=== PATIENT | female | born 1955 | race Caucasian/White ===

== ENCOUNTER → 2021-09-21 | Day surgery (SDC) | payer MEDICARE, BC ==
[~2021-09-21] MED LIST: Ketamine 200 MG/20 ML MDV ONE; Midazolam 1 MG/ML 2 ML SDV ONE; Propofol 200 MG/20 ML SDV ONE; fentaNYL 50 MCG/ML SDV ONE
[2021-09-21] MEDS: Lactated Ringers 1,000 ML IV SCH (08:39)
== END ==
LOC: CC.SDS 08:17
PROVIDERS: ATTEND Family Medicine
DX: D12.3 Benign neoplasm of transverse colon (principal); D12.4 Benign neoplasm of descending colon; D12.5 Benign neoplasm of sigmoid colon; K57.30 Diverticulosis of large intestine without perforation or abscess without bleeding; F41.9 Anxiety disorder, unspecified; E78.5 Hyperlipidemia, unspecified; G47.00 Insomnia, unspecified; G43.909 Migraine, unspecified, not intractable, without status migrainosus; M81.0 Age-related osteoporosis without current pathological fracture; Z88.1 Allergy status to other antibiotic agents; Z88.8 Allergy status to other drugs, medicaments and biological substances; Z88.6 Allergy status to analgesic agent; Z88.2 Allergy status to sulfonamides; Z88.0 Allergy status to penicillin; Z79.899 Other long term (current) drug therapy; Z87.891 Personal history of nicotine dependence
CPT/HCPCS: 00811; J2250; J2704; J3010; J7120

== ENCOUNTER 2022-07-21 12:27 | Emergency (ER) | payer MEDICARE, BC ==
[2022-07-21] MEDS ORDERED: methylPREDNISolone Sodium Succinate 125 MG/2 ML SDV IM STA (12:49)
== END 2022-07-21 13:30 | disposition home or self-care (01) ==
LOC: CC.ED 12:27
DX: R22.0 Localized swelling, mass and lump, head (principal); T78.3XXD Angioneurotic edema, subsequent encounter; Z88.1 Allergy status to other antibiotic agents; Z88.0 Allergy status to penicillin; Z88.6 Allergy status to analgesic agent; Z88.2 Allergy status to sulfonamides; Z79.899 Other long term (current) drug therapy
CPT/HCPCS: 96372; 99283; J2930

== ENCOUNTER 2024-12-17 07:19 | Day surgery (SDC) | payer MEDICARE, BC ==
[2024-12-17] MEDS: Lactated Ringers 1,000 ML IV SCH (07:40)
[2024-12-17] MEDS ORDERED: Midazolam 1 MG/ML 2 ML SDV ONE (08:14)
[2024-12-17] MEDS ORDERED: Ketamine 200 MG/20 ML MDV ONE (08:14)
[2024-12-17] MEDS ORDERED: fentaNYL 50 MCG/ML SDV ONE (08:14)
== END 2024-12-17 09:20 | disposition home or self-care (01) ==
LOC: CC.SDS 07:19
PROVIDERS: ATTEND Family Medicine
DX: Z12.11 Encounter for screening for malignant neoplasm of colon (principal); D12.3 Benign neoplasm of transverse colon; D12.5 Benign neoplasm of sigmoid colon; K57.30 Diverticulosis of large intestine without perforation or abscess without bleeding; E78.5 Hyperlipidemia, unspecified; Z88.8 Allergy status to other drugs, medicaments and biological substances; Z88.1 Allergy status to other antibiotic agents; Z88.0 Allergy status to penicillin; Z88.2 Allergy status to sulfonamides; Z91.012 Allergy to eggs; Z79.899 Other long term (current) drug therapy; Z86.0100 Personal history of colon polyps, unspecified; Z87.891 Personal history of nicotine dependence
CPT/HCPCS: 00811; 45385; J2250; J3010; J3490; J7120; 88305